=== PATIENT | male | born 1980 | race American Indian/Alaskan Native ===

== ENCOUNTER 2022-09-09 19:06 | Emergency (ER) | payer SELFPAY | END 2022-09-09 19:32 | LOC: MW.ED 19:06 | DX: Z02.89 Encounter for other administrative examinations (principal) | CPT/HCPCS: 99283 ==

== ENCOUNTER 2022-09-13 01:34 | Emergency (ER) | payer SELFPAY ==
[2022-09-13] MEDS ORDERED: Haloperidol Lactate 5 MG/ML SDV IM ONE ×2 (01:36→01:49)
[2022-09-13] MEDS ORDERED: diphenhydrAMINE 50 MG/ML SDV IM ONE (01:36)
[2022-09-13] MEDS ORDERED: LORazepam 2 MG/ML SDV IM ONE (01:36)
[2022-09-13] MEDS ORDERED: diphenhydrAMINE 50 MG/ML SDV ONE (01:37)
[2022-09-13] MEDS ORDERED: LORazepam 2 MG/ML SDV ONE (01:37)
[2022-09-13] MEDS ORDERED: Haloperidol Lactate 5 MG/ML SDV ONE (01:37)
[2022-09-13] MEDS ORDERED: Diphtheria,Pertussis(Acell),Tetanus Vaccine 0.5 ML Syringe IM ONE (01:38)
[2022-09-13] MEDS ORDERED: Ketamine 500 mg/10 ML MDV IM ONE (02:12)
[2022-09-13] MEDS ORDERED: Ketamine 500 mg/10 ML MDV ONE (02:15)
[2022-09-13] MEDS ORDERED: Ketamine 500 mg/10 ML MDV IM STA (02:38)
[2022-09-13 03:19] LABS: ACETAMINOPHEN <2.0 ug/mL; BLOOD UREA NITROGEN,BUN 95 mg/dL (7.0-18.0); CHLORIDE,CL 98 mmol/L (98-107); GLUCOSE RANDOM 116 mg/dL (74-106); POTASSIUM,K 4.3 mmol/L (3.5-5.1); SODIUM,NA 133 mmol/L (136-148)
[2022-09-13 03:20] LABS: ESTIMATED GFR 44 mL/min (>60)
[2022-09-13] MEDS ORDERED: Sodium Chloride 0.9% 1,000 ML IV ONE ×2 (03:21→03:22)
[2022-09-13] MEDS: Sodium Chloride 0.9% 1,000 ML IV ONE ×2 (03:30→04:20)
== END 2022-09-13 06:23 ==
LOC: MW.ED 01:34
DX: S01.01XA Laceration without foreign body of scalp, initial encounter (principal); T79.6XXA Traumatic ischemia of muscle, initial encounter; F29 Unspecified psychosis not due to a substance or known physiological condition; F20.9 Schizophrenia, unspecified; R74.01 Elevation of levels of liver transaminase levels; Z23 Encounter for immunization; Z20.822 Contact with and (suspected) exposure to COVID-19; Y04.0XXA Assault by unarmed brawl or fight, initial encounter
CPT/HCPCS: 12002; 36415; 70450; 72125; 80053; 80143; 80179; 80305; 80307; 82550; 83735; 84443; 84484; 85025; 85610; 85730; 87635; 90471; 90715; 96360; 96372; 99285; J1200; J1630; J2060; J3490; J7030; U0002